=== PATIENT | male | born 1975 | race American Indian/Alaskan Native ===

== ENCOUNTER 2021-01-29 08:55 | Emergency (ER) | payer MEDICAID ==
[2021-01-29 09:17] VITALS: BP 155/96
[2021-01-29] MEDS ORDERED: HYDROcodone/ACETAMINOPHEN 5-325 MG TAB PO ONE (10:18)
--- NOTE | 2021-01-29 11:27 | Ultrasound Report ---
ULTRASOUND SCROTUM INDICATION / CLINICAL INFORMATION: testicular pain and swelling. COMPARISON: None available. FINDINGS -- RIGHT TESTIS: Size = 3.6 x 2.4 x 2.4 cm. - Appearance: No significant abnormality. - Cyst or Mass: None. - Color Doppler Flow: No significant abnormality. EPIDIDYMIS: Relatively increased size and internal vascularity HYDROCELE: Moderate complex VARICOCELE: None demonstrated. FINDINGS -- LEFT TESTIS: Size = 3.7 x 2.5 x 1.9 cm. - Appearance: No significant abnormality. - Cyst or Mass: None. - Color Doppler Flow: No significant abnormality. EPIDIDYMIS: No significant abnormality. HYDROCELE: None. VARICOCELE: None demonstrated. ADDITIONAL FINDINGS: None. IMPRESSION: 1. Relative enlargement and hypervascularity of the right epididymis suggesting right-sided epididymi tis. Right testicle appears normal. 2. Moderate complex right-sided hydrocele. Signer Name: Theo Cespedes MD Signed: 01/29/2021 11:23 AM Workstation Name: [id number]
--- NOTE | 2021-01-29 11:31 | Emergency Department Report ---
ED Male HPI - General Chief complaint: Urogenital-Male Stated complaint: TESTICLE PAIN Time Seen by Provider: 01/29/21 09:55 Source: patient Mode of arrival: Ambulatory Limitations: No Limitations - History of Present Illness Initial comments: This is a 45-year-old male with no prior medical history who presents to ED complaining of testicle pain and swelling x2 days. Patient states that he was lifting some heavy furniture 2 days ago and yesterday evening he started to notice some pain and this morning he noticed swelling and pain to the right s crotum. He denies dysuria, hematuria, penile discharge, penile lesions MD Complaint: testicle pain, testicle swelling Location: right testicle Radiation: none Severity: moderate Severity scale (0 -10): 8 Quality: aching Consistency: constant Improves with: none Worsens with: movement denies other symptoms - Related Data Previous Rx's Medication Instructions Recorded Last Taken Type Acetaminophen/Codeine [Tylenol 1 tab PO Q6H #12 tab 01/29/21 Unknown Rx /Codeine # 3 tab] Doxycycline Hyclate [Doxycycline 100 mg PO Q12HR #14 tab 01/29/21 Unknown Rx Hyclate TAB] Ibuprofen [Motrin] 800 mg PO Q8HR #30 tablet 01/29/21 Unknown Rx Allergies Allergy/AdvReac Type Severity Reaction Status Date / Time No Known Allergies Allergy Unverified 01/29/21 09:17 ED Review of Systems ROS: Stated complaint: TESTICLE PAIN Other details as noted in HPI Comment: All other systems reviewed and negative ED Past Medical Hx - Past Medical History Previous Medical History?: No - Surgical History Past Surgical History?: No - Social History Smoking Status: Never Smoker Substance Use Type: None - Medications Home Medications: Home Medications Medication Instructions Recorded Confirmed Last Taken Type Acetaminophen/Codeine [Tylenol 1 tab PO Q6H #12 tab 01/29/21 Unknown Rx /Codeine # 3 tab] Doxycycline Hyclate [Doxycycline 100 mg PO Q12HR #14 tab 01/29/21 Unknown Rx Hyclate TAB] Ibuprofen [Motrin] 800 mg PO Q8HR #30 tablet 01/29/21 Unknown Rx ED Physical Exam - General Limitations: No Limitations General appearance: alert, in no apparent distress - Head Head exam: Present: atraumatic, normocephalic - Eye Eye exam: Present: normal appearance - ENT ENT exam: Present: mucous membranes moist - Neck Neck exam: Present: normal inspection - Respiratory Respiratory exam: Present: normal lung sounds bilaterally. Absent: respiratory distress - Cardiovascular Cardiovascular Exam: Present: regular rate, normal rhythm. Absent: systolic murmur, diastolic murmur, rubs, gallop - GI/Abdominal GI/Abdominal exam: Present: soft, normal bowel sounds - Rectal Rectal exam: Present: deferred - exam: Present: testicular tenderness, scrotal swelling. Absent: urethral discharge External exam: Absent: erythema, swelling, bleeding - Extremities Exam Extremities exam: Present: normal inspection, full ROM - Back Exam Back exam: Present: normal inspection - Neurological Exam Neurological exam: Present: alert, oriented X3 - Psychiatric Psychiatric exam: Present: normal affect, normal mood - Skin Skin exam: Present: warm, dry, intact, normal color. Absent: rash ED Course Vital Signs 01/29/21 01/29/21 09:17 10:26 Temperature 98.4 F Pulse Rate 79 Respiratory 14 20 Rate Blood Pressure 155/96 O2 Sat by Pulse 99 Oximetry ED Medical Decision Making - Radiology Data Radiology results: report reviewed, image reviewed - Medical Decision Making 45-year-old male who presented with scrotum swelling most likely secondary to epididymitis Ultrasound scrotum of the scrotum shows no acute findings. Patient received pain medication in ED reports feeling some discomfort upon reevaluation. Patient will be sent home on some antibiotics and pain medication and follow-up with primary care physician. Critical care attestation.: If time is entered above; I have spent that time in minutes in the direct care of this critically ill patient, excluding procedure time. ED Disposition Clinical Impression: Epididymitis, Hydrocele Disposition: DC-01 TO HOME OR SELFCARE Is pt being admited?: No Does the pt Need Aspirin: No Condition: Stable Instructions: Epididymitis, Epididymitis (ED) Additional Instructions: Make sure to follow up with the primary care physician as discussed. Take all your medications as you've been prescribed. If you have any worsening symptoms or develop new symptoms please return to ED immediately. Prescriptions: Doxycycline Hyclate [Doxycycline Hyclate TAB] 100 mg PO Q12HR #14 tab Ibuprofen [Motrin] 800 mg PO Q8HR #30 tablet Acetaminophen/Codeine [Tylenol /Codeine # 3 tab] 1 tab PO Q6H #12 tab Referrals: PRIMARY CARE, [Primary Care Provider] - 3-5 Days [facility] [Outside] - 3-5 Days Forms: STI Treatment and Prevention Time of Disposition: 13:05
[2021-01-29] MEDS ORDERED: predniSONE 20 MG TAB PO ONE (12:47)
== END 2021-01-29 13:43 | disposition home or self-care (01) ==
LOC: ED 08:55
DX: N45.1 Epididymitis (principal); N43.3 Hydrocele, unspecified; Z79.1 Long term (current) use of non-steroidal anti-inflammatories (NSAID); Z79.899 Other long term (current) drug therapy
CPT/HCPCS: 93975; 99283; J7512